=== PATIENT | female | born 1980 | race Caucasian/White ===

== ENCOUNTER 2018-05-18 16:53 | Emergency (ER) | payer OTHER ==
[~2018-05-18] VITALS: Ht 170.2 cm; Wt 106.6 kg
[2018-05-18] MEDS ORDERED: DEPRESSION MEDICATIO (17:05)
[2018-05-18] MEDS ORDERED: AUGMENTIN 875-1 EACH PO (17:32)
[2018-05-18] MEDS ORDERED: MECLIZINE HCL25 M1 PO (17:32)
[2018-05-18 17:43] VITALS: BP 126/78
== END 2018-05-18 17:43 | disposition home or self-care (01) ==
LOC: M.ERS 16:53
DX: J32.0 Chronic maxillary sinusitis (principal); H11.31 Conjunctival hemorrhage, right eye; R42 Dizziness and giddiness

== ENCOUNTER 2019-09-04 20:31 | Emergency (ER) | payer OTHER ==
[~2019-09-04] VITALS: Ht 167.6 cm; Wt 99.8 kg
[~2019-09-04 20:31] MED LIST: AUGMENTIN 875-1 EACH PO; DEPRESSION MEDICATIO; MECLIZINE HCL25 M1 PO
[2019-09-04 20:48] LABS: URINE BILIRUBIN NEGATIVE (Negative); URINE BLOOD TRACE (Negative); URINE CLARITY CLEAR; URINE COLOR YELLOW; URINE GLUCOSE-RANDOM NEGATIVE (Negative); URINE KETONES NEGATIVE (Negative); URINE LEUKOCYTES-REFLEX NEGATIVE (Negative); URINE NITRITE-REFLEX NEGATIVE (Negative); URINE PROTEIN NEGATIVE (Negative); URINE SPECIFIC GRAVITY 1.025 (1.005-1.030)
[2019-09-04] MEDS ORDERED: FLEXERIL PO (22:09)
[2019-09-04] MEDS ORDERED: HYDROCODON-ACE1 EAC8 PO (22:09)
[2019-09-04 22:19] VITALS: BP 114/55
== END 2019-09-04 22:20 | disposition home or self-care (01) ==
LOC: M.ERS 20:31
PROVIDERS: Emergency Medicine
DX: M54.16 Radiculopathy, lumbar region (principal)

== ENCOUNTER 2020-04-12 18:57 | Emergency (ER) | payer OTHER ==
[~2020-04-12] VITALS: Ht 162.6 cm; Wt 99.8 kg
[~2020-04-12 18:57] MED LIST changes: +FLEXERIL PO; +HYDROCODON-ACE1 EAC8 PO
[2020-04-12] MEDS ORDERED: AMITRIPTYLINE H25 M2 PO (19:07)
[2020-04-12] MEDS ORDERED: VENLAFAXINE HCL75 MG PO (19:08)
[2020-04-12] MEDS ORDERED: CLONAZEPAM 0.50.5 M1 PO (19:08)
[2020-04-12 20:23] LABS: URINE BLOOD 2+ (Negative); URINE CLARITY CLEAR; URINE COLOR YELLOW; URINE GLUCOSE-RANDOM NEGATIVE (Negative); URINE KETONES NEGATIVE (Negative); URINE LEUKOCYTES-REFLEX NEGATIVE (Negative); URINE NITRITE-REFLEX NEGATIVE (Negative); URINE PROTEIN NEGATIVE (Negative); URINE UROBILINOGEN 0.2 E.U./dl (0.2-1.0)
[2020-04-12 20:25] LABS: URINE BILIRUBIN 1+ (Negative)
[2020-04-12 20:28] LABS: ICTOTEST (BILI CONFIRMATORY) Negative (Negative)
[2020-04-12 20:36] LABS: BACTERIA-REFLEX 1-9 Few /HPF (None Seen); CASTS None Seen /LPF (None Seen); CRYSTALS None Seen /LPF (None Seen); SQUAMOUS 0-3 Few /LPF (0-3); URINE RBC 0-2 Rare /HPF (0-2); URINE WBC-REFLEX 0-5 Rare /HPF (0-5)
[2020-04-12] MEDS ORDERED: HYDROCODON-ACE1 EAC8 PO (20:42)
[2020-04-12] MEDS ORDERED: MEDROLDOSEPACK PO (20:42)
[2020-04-12] MEDS ORDERED: FLEXERIL PO (20:42)
[2020-04-12 20:49] VITALS: BP 124/76
== END 2020-04-12 20:50 | disposition home or self-care (01) ==
LOC: M.ERS 18:57
PROVIDERS: Emergency Medicine
DX: M54.5 Low back pain (principal); F41.9 Anxiety disorder, unspecified; Z79.899 Other long term (current) drug therapy